=== PATIENT | female | born 1955 | race African-American/Black ===

== ENCOUNTER 2021-03-05 16:40 | Emergency (ER) | payer OTHER ==
[~2021-03-05] VITALS: Ht 167.6 cm; Wt 104.9 kg
[2021-03-05] MEDS ORDERED: HYDRALAZINE HCL50 MG PO (18:05)
[2021-03-05] MEDS ORDERED: GLIMEPIRIDE2 MG PO (18:05)
[2021-03-05] MEDS ORDERED: AMLODIPINE BESY10 MG PO (18:05)
[2021-03-05] MEDS ORDERED: MULTI-VITAMIN1 EACH PO (18:05)
[2021-03-05] MEDS ORDERED: ATORVASTATIN CA20 MG PO (18:05)
[2021-03-05] MEDS ORDERED: JANUMET XR 1001 EACH (18:05)
[2021-03-05] MEDS ORDERED: METOPROLOL SUCC50 MG PO (18:05)
[2021-03-05] MEDS ORDERED: ASPIRIN EC81 MG PO (18:05)
[2021-03-05] MEDS ORDERED: OLMESARTAN-HCT1 EAC2 (18:05)
[2021-03-05] MEDS ORDERED: SODIUM CHLORIDE 0.9% 1000ML 1,000 ML IV SCH (18:15)
[2021-03-05] MEDS ORDERED: CEFTRIAXONE 1 GM VIAL ONE (20:18)
[2021-03-05] MEDS ORDERED: DEXAMETHASONE SOD PHOS INJ 4 MG/ML VIAL ONE (20:27)
[2021-03-05] MEDS ORDERED: DEXAMETHASONE SOD PHOS INJ 4 MG/ML VIAL IV ONE (20:30)
[2021-03-05] MEDS ORDERED: CEFTRIAXONE 1 GM in SODIUM CHLORIDE 0.9% 50ML 50 ML IV ONE (20:30)
[2021-03-05] MEDS ORDERED: AZITHROMYCIN 500MG/NS 250 ML 250 ML IV ONE (20:30)
[2021-03-05] MEDS ORDERED: DEXAMETHASONE6 MG PO (21:47)
[2021-03-05] MEDS ORDERED: AZITHROMYCIN250 MG PO (21:47)
[2021-03-05] MEDS ORDERED: CEFDINIR300 MG PO (21:48)
[2021-03-05] MEDS ORDERED: PROVENTIL HFA6.7 GM INH (21:49)
[2021-03-05] MEDS ORDERED: GUAIFEN-CODEINE5 ML PO (21:50)
== END 2021-03-05 22:20 | disposition home or self-care (01) ==
LOC: FSED 17:36
DX: U07.1 COVID-19 (principal); J18.9 Pneumonia, unspecified organism; R06.02 Shortness of breath; R05 Cough; I10 Essential (primary) hypertension; E11.9 Type 2 diabetes mellitus without complications; C50.919 Malignant neoplasm of unspecified site of unspecified female breast; E78.5 Hyperlipidemia, unspecified
CPT/HCPCS: 71250; 80053; 81003; 82553; 83880; 84484; 85025; 99284; J0456; J0696; J1100; U0002